=== PATIENT | female | born 1935 | race Caucasian/White ===

== ENCOUNTER 2017-09-17 18:45 | Emergency (ER) | payer OTHER ==
[~2017-09-17] VITALS: Ht 170.2 cm; Wt 56.7 kg
[~2017-09-17 18:45] MED LIST: CEPHALEXIN 500500 M1 PO; CHOLESTEROL; COREG6.25 MG PO; LIPITOR 10 MG10 M1 PO; MULTI VITAMIN1 EACH PO; NORCO 5-325 TA1 EACH PO
[2017-09-17 20:43] VITALS: BP 139/56
== END 2017-09-17 20:44 | disposition home or self-care (01) ==
LOC: M.ERS 18:45
DX: M25.511 Pain in right shoulder (principal); I10 Essential (primary) hypertension; G30.9 Alzheimer's disease, unspecified; Z88.1 Allergy status to other antibiotic agents; Z88.5 Allergy status to narcotic agent; V89.2XXA Person injured in unspecified motor-vehicle accident, traffic, initial encounter; Y93.89 Activity, other specified; Y92.89 Other specified places as the place of occurrence of the external cause; Y99.8 Other external cause status

== ENCOUNTER → 2018-03-20 | Outpatient (CLI) | payer OTHER | LOC: M.RAD 14:48 | DX: M16.0 Bilateral primary osteoarthritis of hip (principal) ==

== ENCOUNTER 2018-03-31 10:20 | Emergency (ER) | payer OTHER ==
[~2018-03-31] VITALS: Ht 162.6 cm; Wt 90.7 kg
[2018-03-31] MEDS ORDERED: PREDNISONE 20 M20 M1 PO (12:48)
[2018-03-31] MEDS ORDERED: TORADOL 10 MG T10 MG PO (12:48)
[2018-03-31 13:11] VITALS: BP 138/56
== END 2018-03-31 13:12 | disposition home or self-care (01) ==
LOC: M.ERS 10:20
DX: M54.32 Sciatica, left side (principal); I10 Essential (primary) hypertension; G30.9 Alzheimer's disease, unspecified; F02.80 Dementia in other diseases classified elsewhere, unspecified severity, without behavioral disturbance, psychotic disturbance, mood disturbance, and anxiety; Z88.5 Allergy status to narcotic agent; Z88.1 Allergy status to other antibiotic agents

== ENCOUNTER 2018-10-12 18:40 | Emergency (ER) | payer OTHER ==
[~2018-10-12] VITALS: Ht 172.7 cm; Wt 55.9 kg
[~2018-10-12 18:40] MED LIST changes: +PREDNISONE 20 M20 M1 PO; +TORADOL 10 MG T10 MG PO
[2018-10-12 19:45] LABS: ABSOLUTE EOSINOPHILS 0.1 thou/uL (0.0-0.7); ABSOLUTE LYMPHOCYTES 1.9 thou/uL (0.8-5.3); ABSOLUTE MONOCYTES 0.4 thou/uL (0.0-1.2); ABSOLUTE NEUTROPHILS 3.4 thou/uL (1.6-8.1); BASOPHILS 0.7 %; HEMATOCRIT 37.1 % (37.0-47.0); HEMOGLOBIN 12.4 gm/dL (12.0-15.0); LYMPHOCYTES 32.4 %; MCH 30.2 pg (26.0-34.0); MCHC 33.5 g/dL (28.0-37.0); MCV 90.2 fL (80.0-100.0); MONOCYTES 7.6 %; MPV 6.9 fl. (7.2-11.1); NUCLEATED RBCS 0 /100WBC; PLATELET COUNT* 163 thou/uL (150-400); POLYS 57.3 %; RBC 4.11 mil/uL (4.20-5.00); WBC 5.9 thou/uL (4.0-11.0)
[2018-10-12 20:00] LABS: CALCIUM 8.9 mg/dL (8.5-10.1); POTASSIUM 3.9 mmol/L (3.5-5.1)
[2018-10-12 20:05] LABS: ALBUMIN 3.5 g/dL (3.4-5.0); SALICYLATE < 2.8 mg/dL (2.8-20.0); TOTAL BILIRUBIN 0.3 mg/dL (<0.1-1.0); TOTAL PROTEIN 6.9 g/dL (6.4-8.2)
[2018-10-12 20:06] LABS: ACETAMINOPHEN < 2 ug/mL (10-30); ALCOHOL < 10 mg/dL (<10)
[2018-10-12 20:44] LABS: URINE BILIRUBIN NEGATIVE (Negative); URINE BLOOD NEGATIVE (Negative); URINE CLARITY CLEAR; URINE COLOR YELLOW; URINE GLUCOSE-RANDOM NEGATIVE (Negative); URINE KETONES NEGATIVE (Negative); URINE LEUKOCYTES-REFLEX NEGATIVE (Negative); URINE NITRITE-REFLEX NEGATIVE (Negative); URINE PROTEIN NEGATIVE (Negative); URINE UROBILINOGEN 0.2 E.U./dl (0.2-1.0)
[2018-10-12 20:51] LABS: AMP/METHAMP Negative (Negative); BARBITURATES Negative (Negative); BENZODIAZEPINES Negative (Negative); COCAINE Negative (Negative); METHADONE Negative (Negative); OPIATES Negative (Negative); PCP Negative (Negative); THC Negative (Negative)
[2018-10-12 22:40] VITALS: BP 165/69
== END 2018-10-12 22:40 | disposition still patient (30) ==
LOC: M.ERS 18:40
PROVIDERS: Nurse Practitioner Family
DX: S60.811A Abrasion of right wrist, initial encounter (principal); G30.9 Alzheimer's disease, unspecified; F02.81 Dementia in other diseases classified elsewhere, unspecified severity, with behavioral disturbance; F91.9 Conduct disorder, unspecified; Z88.5 Allergy status to narcotic agent; I10 Essential (primary) hypertension; Z98.890 Other specified postprocedural states; Z88.1 Allergy status to other antibiotic agents; X78.1XXA Intentional self-harm by knife, initial encounter; Y93.89 Activity, other specified; Y92.009 Unspecified place in unspecified non-institutional (private) residence as the place of occurrence of the external cause; Y99.8 Other external cause status

== ENCOUNTER → 2018-11-13 | Outpatient (CLI) | payer OTHER | LOC: M.ULTRA 15:05 | DX: R22.1 Localized swelling, mass and lump, neck (principal) ==

== ENCOUNTER 2019-05-01 07:43 | Inpatient (IN) | payer MEDICARE ==
[~2019-05-01] VITALS: Ht 162.6 cm; Wt 53.1 kg
[2019-05-01 07:51] VITALS: BP 154/65
[2019-05-01] MEDS ORDERED: FOLBIC RF TABL1 EACH PO (07:57)
[2019-05-01] MEDS ORDERED: VITAMIN D21250 MC1 PO (07:58)
[2019-05-01 08:59] LABS: ABSOLUTE LYMPHOCYTES 0.9 thou/uL (0.8-5.3); ABSOLUTE MONOCYTES 0.7 thou/uL (0.0-1.2); BASOPHILS 0.4 %; HEMATOCRIT 38.8 % (37.0-47.0); HEMOGLOBIN 13.2 gm/dL (12.0-15.0); LYMPHOCYTES 15.6 %; MCH 30.8 pg (26.0-34.0); MCHC 33.9 g/dL (28.0-37.0); MCV 90.7 fL (80.0-100.0); MONOCYTES 12.7 %; MPV 6.7 fl. (7.2-11.1); NUCLEATED RBCS 0 /100WBC; PLATELET COUNT* 127 thou/uL (150-400); POLYS 71.3 %; RBC 4.29 mil/uL (4.20-5.00); RDW-CV 13.9 % (10.5-14.5); WBC 5.6 thou/uL (4.0-11.0)
[2019-05-01 09:11] LABS: PROTIME 10.7 Seconds (9.20-11.50)
[2019-05-01 09:17] LABS: CALCIUM 8.7 mg/dL (8.5-10.1); CREATININE 1.1 mg/dL (0.6-1.3); POTASSIUM 3.6 mmol/L (3.5-5.1)
--- NOTE | 2019-05-01 09:17 | NUR ---
PT BACK FROM RADIOLOGY VIA STRETCHER. PT REATTACHED TO MONITORS.
[2019-05-01 09:27] LABS: ALBUMIN 3.2 g/dL (3.4-5.0); TOTAL BILIRUBIN 0.6 mg/dL (<0.1-1.0); TOTAL PROTEIN 6.6 g/dL (6.4-8.2)
[2019-05-01 09:46] LABS: INFLUENZA A ANTIGEN Negative (Negative); INFLUENZA B ANTIGEN Negative (Negative)
[2019-05-01 09:46] LABS: URINE BILIRUBIN NEGATIVE (Negative); URINE BLOOD TRACE (Negative); URINE CLARITY CLEAR; URINE COLOR YELLOW; URINE GLUCOSE-RANDOM NEGATIVE (Negative); URINE KETONES NEGATIVE (Negative); URINE LEUKOCYTES-REFLEX NEGATIVE (Negative); URINE NITRITE-REFLEX NEGATIVE (Negative); URINE PROTEIN NEGATIVE (Negative); URINE SPECIFIC GRAVITY 1.025 (1.005-1.030); URINE UROBILINOGEN 0.2 E.U./dl (0.2-1.0)
--- NOTE | 2019-05-01 12:49 | EKG ---
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: [facility] : 1935 Requested By: Adan Barcenas Order Number: [id number] MD: David Govea Measurements Intervals [place] Rate: 80 P: 46 SC: 150 QRS: 16 QRSD: 83 T: 69 QT: 405 QTc: 468 Interpretive Statements Sinus rhythm Atrial premature complexes poor r wave progression Compared to ECG 09/28/2015 08:06:14 Atrial premature complex(es) now present Electronically Signed On 05-01-2019 12:47:51 CDT by David Govea [email or web address] <ELECTRONICALLY SIGNED> By: David Govea MD, [facility] 05/01/19 1247 0803 0803 David Govea MD, [facility] /EPI
--- NOTE | 2019-05-01 14:16 | NUR ---
PT PULLING AT CATHETER. TOOK STAT LOCK OFF LEG. PT REDIRECTED BY STAFF. REPOSITIONED IN BED AND GIVEN WARM BLANKETS. PT CURRENTLY IN BED, EYES CLOSED, RESPIRATIONS EVEN AND UNLABORED.
--- NOTE | 2019-05-01 15:00 | NUR ---
PT CONTINUES TO PULL AT CORDS. PT REPOSITIONED AND REDIRECTED AGAIN. PT LEGS HANGING OFF BED, BETWEEN SIDERAILS. LEGS PLACED BACK IN BED. PILLOW PLACED UNDER RIGHT HIP.
--- NOTE | 2019-05-01 15:25 | NUR ---
CATHETER OUTPUT 1,150 ML
--- NOTE | 2019-05-01 15:36 | NUR ---
PT LEGS IN BETWEEN SIDERAILS OF BED, PT GRABBING AT CORDS AND CATHETER. PT HAS KICKED OFF BLANKETS AND LIFTED UP GOWN EXPOSING VAGINA. THIS NURSE AND REANNA RN IN ROOM GETTING PT SITUATED IN BED. PILLOW PLACED UNDER PT RIGHT SIDE. ALL CORDS REMOVED FROM PT REACH. PT GRABBED FOR CATHETER, NURSE GAVE PT BP CUFF TO KEEP PT FROM GRABBING AT CATHETER TUBING. WARM BLANKETS GIVEN TO PT.
[2019-05-01 16:05] VITALS: BP 146/85
--- NOTE | 2019-05-01 16:05 | NUR ---
REPORT GIVEN TO LOGAN REED WHO IS TO ASSUME PT CARE INPATIENT NURSE.
[2019-05-01 16:30] VITALS: BP 124/80
--- NOTE | 2019-05-01 17:45 | NUR ---
1630 PATIENT ARRIVED TO FLOOR VIA GURNEY FROM ER, REPORT REC'D FROM [facility]. PATIENT PLACED IN COVID ISOLATION, AND ASSESSMENT PERFORMED. PATIENT RESTLESS BUT EYES CLOSED AND EASILY REDIRECTED. CEDILLO CATHETER PATENT AND DRAINING CLEAR PALE YELLOW URINE. NO RESP DISTRESS OR COUGH NOTED AT THIS TIME.
[2019-05-01 19:45] VITALS: BP 123/58
[2019-05-02 01:21] VITALS: BP 155/72
--- NOTE | 2019-05-02 05:16 | NUR ---
PT HAS REMAINED SLEEPING WITHOUT COMPLAINTS THIS SHIFT. O2 2L PRN TO KEEP SATS >90%. CEDILLO DRAINING CLEAR YELLOW URINE. TEMP MAX 99.4AXILLARY. NO LABS THIS MORNING. REMAIN ON COVID ISOLATION. PT WITH SNORING RESPIRATIONS, OCC CONGESTED COUGH HEARD. SCDS. PT TURNED AND REPOSITIONED Q2 HOURS AND PRN FOR SKIN INTEGRITY AND COMFORT. LAC SL. HX DEMENTIA. PENDING COVID LAB RESULTS. BED ALARM ON FOR SAFETY.
[2019-05-02 08:30] VITALS: BP 158/77
--- NOTE | 2019-05-02 09:48 | NUR ---
Pt lives at home with spouse. Pt has history of dementia according to pt . Pt has extended family support; nephew listed as authorized contact. No known DME or HH or SNF history. SW to continue to follow to assist with safe dc planning.
--- NOTE | 2019-05-02 16:03 | NUR ---
FAXED REFERRAL TO [facility]. CONFIRMED WITH ROXIE/INTAKE THAT THEY RECEIVED AND SHE WILL REVIEW AND GET BACK WITH ME TOMORROW, 05/03/19. SPOKE TO RASHAWN MURRY (SPOUSE) [phone] AND NOTIFIED HIM THAT WE SENT THE REFERRAL TO [facility]. [facility] [phone]; [phone]
--- NOTE | 2019-05-02 17:14 | NUR ---
PT AWKE/ALERT ORIENTED TO PERSON. VSS. PT OCCASSIONALLY CALLS OUT, BUT MAKES NO ATTEMPT TO LEAVE THE BED. BED ALARM ON, FALL PRECAUTIONS IN PLACE. CEDILLO CATHETER IN PLACE, PATENT, YELLOW URINE IN COLLECTION BAG. PT REMAINS CONFUSED, BUT BASELINE. PT SPOUSE CONTACTED CASE MANAGEMENT R/T LTC UPON DC FROM HOSPITAL. SPOUSE UPDATED BY PHONE. IV TO LFA PATENT, SECURED WITH COBAN. NO REDNESS/SWELLING AT SITE. PT REMIANS ON ISOLATION PRECAUTIONS LAB RESULTS PENDING. PT RESTS IN BED WITH CALL LIGHT IN REACH. WILL COPNTINUE TO MONITOR.
[2019-05-02 20:00] VITALS: BP 162/75
--- NOTE | 2019-05-03 05:43 | NUR ---
PT ORIENTED TO SELF. CONFUSED. FORGETFUL. VISUAL HALLUCINATION. VSS ON RA. 2L @ HS C/O DESATT WHILE SLEEPING PER REPORT. ISOLATION PRECAUTION IN PLACE. MEDS GIVEN PER EMAR. PT TAKES MED WHOLE. CEDILLO IN PLACE. HOURLY ROUNDINGS MADE. PT SLEPT WELL THIS SHIFT. WILL CONTINUE TO MONITOR.
[2019-05-03 08:30] VITALS: BP 150/70
[2019-05-03 14:33] LABS: HEMATOCRIT 42.5 % (37.0-47.0); HEMOGLOBIN 14.6 gm/dL (12.0-15.0); MCHC 34.4 g/dL (28.0-37.0); MCV 90.1 fL (80.0-100.0); MPV 7.4 fl. (7.2-11.1); NUCLEATED RBCS 0 /100WBC; PLATELET COUNT* 152 thou/uL (150-400); RBC 4.72 mil/uL (4.20-5.00); RDW-CV 13.7 % (10.5-14.5); WBC 11.8 thou/uL (4.0-11.0)
--- NOTE | 2019-05-03 14:48 | NUR ---
SW received call from pt who wanted update on pt status. Pt said he was concerned with pt toenails and wondered if it could be a source of infection. DC neighborhood planner informed SW that [facility] said that they would not be able to meet pt needs/accept at dc. SW to inform pt and discuss alternate options or possibility of pt to dc home with home health.
[2019-05-03 14:49] LABS: ALBUMIN 2.9 g/dL (3.4-5.0); CALCIUM 8.9 mg/dL (8.5-10.1); CREATININE 1.1 mg/dL (0.6-1.3); POTASSIUM 3.9 mmol/L (3.5-5.1); TOTAL BILIRUBIN 0.9 mg/dL (<0.1-1.0); TOTAL PROTEIN 7.2 g/dL (6.4-8.2)
[2019-05-03 15:39] LABS: ABSOLUTE LYMPHOCYTES 0.8 thou/uL (0.8-5.3); ABSOLUTE MONOCYTES 0.5 thou/uL (0.0-1.2); ABSOLUTE NEUTROPHILS 10.5 thou/uL (1.6-8.1)
[2019-05-03 15:40] LABS: PLATELET ESTIMATE ADEQUATE
--- NOTE | 2019-05-03 18:34 | NUR ---
PT AWAKE MOST OF THIS SHIFT. VSS. PT ORIENTED TO SELF. CEDILLO CATHETER PATENT, DK YELLOW URINE IN BAG. IV TO LFA DC'D THIS AFTERNOON, NEW ACCESS PLACED DISTAL LFA. PT SPOUSE SPOKE WITH CASE MGMNT R/T TO PLACEMENT UPON DC FROM UNIT. PT ON 2L O2 NC AT NOC. PT AFEBRILE THIS AM, BUT FOUND TO BE WARM TO THE TOUCH THIS AFTERNOON DURING BED CHANGE AND REPOSITIONING. APPROX 1700 PT TEMP 101.9 AX, REPORTED TO DR YO. 650 MG TYLENOL, AZITHROMYCIN AND UA ORDERED PER DR YO. PT REMAINS ON ISOLATION AWAITING LAB RESULTS. POP FLUIDS ENCOURAGED AND PT DRANK WATER WITHOUT DIFFICULTY. WILL CONTINUE TO ENCOURAGE FLUID INTAKE. PT CURRENTLY RESTING IN BED WITH CALL LIGHT IN REACH. WILL CONTINUE TO MONITOR.
[2019-05-03 20:00] VITALS: BP 118/58
--- NOTE | 2019-05-04 05:58 | NUR ---
PT SLEPT WELL THIS SHIFT. ORIENTED TO PERSON. CONFUSED. FORGETFUL. VISUAL HALLUCINATIONS. PT TOOK MEDS WHOLE. TEMP ON REASSESSMENT AFTER TYLENOL PRIOR SHIFT WAS DOWN TO 97.4. PT DID NOT RUN TEMP THIS SHIFT.Q2 TURN, ISOLATION PRECAUTION IN PLACE. WILL CONTINUE TO MONITOR.
[2019-05-04 08:40] VITALS: BP 110/60
--- NOTE | 2019-05-04 16:08 | NUR ---
FAXED REFERRAL TO SHAWNEE/SARA FOR [facility] AND OTHER [facility] NURSING FACILITIES IN THE [facility]. INFORMED HER THAT PATIENT WOULD INITIALLY BE SKILLED BUT POSSIBLE FUTURE PLACEMENT IN MEMORY CARE LTC. [facility] HAS A NEW ALL-FEMALE MEMORY CARE UNIT THAT I WILL DISCUSS WITH HER . CONCERNED OF THE DISTANCE SO PERSUED ANDERSON BUT THEY HAD NO BEDS AVAILABLE, [facility] COULD NOT ACCEPT WITH CURRENT DEMENTIA DX. [facility] AND [facility] HAVE NOT YET RESPONDED. SHAWNEE/SARA [facility] [phone]; [phone]
--- NOTE | 2019-05-04 16:34 | NUR ---
SPOKE TO RASHAWN MURRY (SPOUSE) REGARDING THE [facility] THAT MAY HAVE AVAILABLE BEDS. HE WAS VERY RECEPTIVE TO THE FACILITY IN [place] BUT WANTED ME TO CHECK [facility] AGAIN. I CALLED AND SPOKE TO ROXIE/LIAISON AT [facility] AND WILL FAX HER UPDATED PROGRESS AND THERAPY NOTES ON 05/07/19. WILL UPDATE SPOUSE ON TUESDAY.
--- NOTE | 2019-05-04 19:12 | NUR ---
PT AWAKE/ALERT ORIENTED TO PERSON. VSS. PT BEGAN SHIFT ON COVID PRECAUTIONS. NEGATIVE RESUKLT REPORTED THIS AFTERNOON, BUT PT REMAINS ON DROPLET D/T PENDING VIRAL PANEL. IV TO LFA PATENT, SALINE LOCKED. PT ENCOURAGED TO DRINK FLUIDS, PT LIKED CRANBERRY JUICE. CEDILLO CATHETER PATENT, YELLOW URINE VISIBLKE IN COLLECTION BAG. PT SPOUSE UPDATED BY PHONE. CASE MANAGEMENT WORKING ON SNF PLACEMENT UPON DC. PT RESTS IN BED WITH CALL IGHT IN REACH. FALL PRECAUTIONS IN PLACE. WILL CONTINUE TO MONITOR.
[2019-05-04 20:30] VITALS: BP 163/68
--- NOTE | 2019-05-05 06:19 | NUR ---
PATIENT SLEPT MOST OF THE NIGHT. PATIENT REMAINS ON DROPLET PRECAUTIONS FOR PENDING RESPIRATORY PANEL. PATIENT REMAINS ON RA SATTING 93%. CEDILLO REMAINS TO DEPENDENT DRAIN. WILL CONTINUE TO MONITOR.
[2019-05-05 07:45] VITALS: BP 101/46
[2019-05-05 09:24] LABS: URINE BILIRUBIN NEGATIVE (Negative); URINE BLOOD 1+ (Negative); URINE CLARITY CLEAR; URINE COLOR YELLOW; URINE GLUCOSE-RANDOM NEGATIVE (Negative); URINE KETONES NEGATIVE (Negative); URINE LEUKOCYTES NEGATIVE (Negative); URINE NITRITE NEGATIVE (Negative); URINE PROTEIN TRACE (Negative); URINE SPECIFIC GRAVITY 1.025 (1.005-1.030); URINE UROBILINOGEN 0.2 E.U./dl (0.2-1.0)
[2019-05-05 09:37] LABS: BACTERIA 1-9 Few /HPF (None Seen); CRYSTALS None Seen /LPF (None Seen); HYALINE CASTS 4-10 Moderate /LPF (None Seen); MUCUS 0-3 Light strn/LPF (None Seen); SQUAMOUS 0-3 Few /LPF (0-3); URINE RBC 3-10 Few /HPF (0-2); URINE WBC 0-5 Rare /HPF (0-5)
[2019-05-05 16:24] VITALS: BP 117/53
--- NOTE | 2019-05-05 18:03 | NUR ---
PATIENT RESTING IN BED. PATIENT IS PLEASANTLY CONFUSED. PATIENT REFUSED BREAKFAST BUT HAS EATEN WELL FOR LUNCH AND DINNER WITH SET-UP. PATIENT DENIES ANY PAIN. PATIENT REPOSITIONED IN BED CHARTED. PATIENT HAS BEEN AFEBRILE. PATIENT HAS NON-PRODUCTIVE COUGH. PATIENT IS ON ROOM AIR. PATIENT DENIES ANY NEEDS AT THIS TIME. BED ALARM ON. CALL LIGHT WITHIN REACH.
[2019-05-06 04:37] LABS: HEMATOCRIT 37.7 % (37.0-47.0); HEMOGLOBIN 12.9 gm/dL (12.0-15.0); MCH 30.7 pg (26.0-34.0); MCHC 34.2 g/dL (28.0-37.0); MCV 89.7 fL (80.0-100.0); MPV 7.6 fl. (7.2-11.1); RBC 4.2 mil/uL (4.20-5.00); RDW-CV 13.6 % (10.5-14.5); WBC 6.6 thou/uL (4.0-11.0)
[2019-05-06 05:06] LABS: ALBUMIN 2.1 g/dL (3.4-5.0); CALCIUM 8.3 mg/dL (8.5-10.1); CREATININE 0.9 mg/dL (0.6-1.3); POTASSIUM 3.8 mmol/L (3.5-5.1); TOTAL BILIRUBIN 0.4 mg/dL (<0.1-1.0); TOTAL PROTEIN 6.1 g/dL (6.4-8.2)
[2019-05-06 08:00] VITALS: BP 143/52
--- NOTE | 2019-05-06 08:38 | NUR ---
PATIENT HAS SLEPT WELL THROUGHOUT THE NIGHT. VSS ON RA. PAIENT REMAINS ON DROPLET PRECAUTIONS. PATIENT IS ALERT TO SELF BUT VERY CONFUSED. PATIENT HAS HISTORY OF [facility]. IV IN [facility]. FALL PRECAUTIONS IN PLACE AND HOURLY ROUNDS MADE. WILL CONTINUE WITH PLAN OF CARE AND NURSING TO MONITOR.
[2019-05-06 15:00] VITALS: BP 144/58
--- NOTE | 2019-05-06 17:13 | NUR ---
PATIENT RESTING IN BED. PATIENT IS CONFUSED. PATIENT HAS TRIED TO GET OUT OF BED, BED ALARM IS ON. PATIENT IS ON ROOM AIR. CEDILLO IS PLACE WITH DARK YELLOW URINE. PATIENT ASSISTED WITH MEALS, HAS FAIR APPETITE. PATIENT DENIES ANY NEEDS AT THIS TIME. CALL LIGHT WITHIN REACH.
[2019-05-06 22:30] VITALS: BP 122/62
[2019-05-07 03:44] LABS: HEMATOCRIT 33.9 % (37.0-47.0); HEMOGLOBIN 11.8 gm/dL (12.0-15.0); MCH 30.9 pg (26.0-34.0); MCHC 34.9 g/dL (28.0-37.0); MCV 88.6 fL (80.0-100.0); MPV 7.4 fl. (7.2-11.1); RBC 3.83 mil/uL (4.20-5.00); RDW-CV 13.6 % (10.5-14.5); WBC 6.3 thou/uL (4.0-11.0)
[2019-05-07 03:57] LABS: CALCIUM 8.2 mg/dL (8.5-10.1); MAGNESIUM 1.8 mg/dL (1.8-2.4); POTASSIUM 3.8 mmol/L (3.5-5.1)
--- NOTE | 2019-05-07 06:09 | NUR ---
PATIENT HAS SLEPT WELL THROUGHOUT THE NIGHT. VSS ON RA. MEDICATIONS GIVEN ORDERED AND CHARTED. ASSESSMENT CHARTED. CEDILLO TO DEPENDENT DRAINAGE WITH DARK YELLOW URINE OUTPUT. IV IN LEFT FOREARM-SL. FALL PRECAUTIONS IN PLACE AND HOURLY ROUNDS MADE. WILL CONTINUE WITH PLAN OF CARE AND NURSING TO MONITOR.
[2019-05-07 07:50] VITALS: BP 137/63
--- NOTE | 2019-05-07 10:14 | NUR ---
FAXED UPDATED PROGRESS NOTES AND CLINICALS TO ROXIE/LIAISON AT [facility]. THEY WANTED TO REASSESS THE PATIENT AFTER THE WEEKEND. FAXED UPDATED PROGRESS NOTES AND CLINICALS TO SHAWNEE/LIAISON AT [facility]. [facility] DOES NOT TAKE [employer] INSURANCE BUT OTHER [facility] WILL ACCEPT INSURANCE. [facility]: [phone]; [phone] [facility]EE [facility]: [phone]; [phone]
--- NOTE | 2019-05-07 14:38 | NUR ---
SW received call from pt , Rai, who asked about updates of pt dc plan. SW informed that although [facility] reviewed updates for pt, they still are not able to accept pt due to not being able to meet pt needs. SW informed that CM and dc demand planner working to find placement and will inform pt as soon as there are any updates on placement. SW discussed whether or not home is an option and again, pt refused home as an option stating that he was unable to care for pt at home. SW to continue to follow.
[2019-05-07 16:10] VITALS: BP 134/48
--- NOTE | 2019-05-07 16:10 | NUR ---
CONFIRMED WITH SHAWNEE/INTAKE AT [facility] THAT THEY WOULD HAVE A BED AVAILABLE AND ARE SUBMITTING FOR INSURANCE AUTHORIZATION. WE DISCUSSED PATIENT NEEDING NURSING HOME CARE THEN POSSIBLY TRANSITIONING TO [facility]OC[facility]ATE CARE/MEMORY CARE. CALLED AND UPDATED RASHAWN (SPOUSE) REGARDING [facility] AND THAT [facility] WAS NOT IN NETWORK WITH PATIENT'S INSURANCE. DISCUSSED THAT PLACEMENT MAY BE EARLY TOMORROW, 05/08/19, AND THAT CASE MANAGEMENT WOULD KEEP HIM INFORMED.
--- NOTE | 2019-05-07 18:49 | NUR ---
PATIENT UP TO CHAIR THIS EVEING WITH THERAPY. PATIENT SET UP FOR MEALS. IV REMAINS SL. NO COMPLAINTS OF PAIN. WOUND PHOTO TAKEN OF COCCYX AND WOUND CONS PLACED. PATIENT CEDILLO DC'D AT 1035, PATIENT DID VOID THIS AFTERNOON. REMAINS IN ISOLATION FOR PENDING RVP.
[2019-05-07 21:20] VITALS: BP 134/83
[2019-05-08 06:07] LABS: ADENOVIRUS Negative (Negative); INFLUENZA A Negative (Negative); INFLUENZA B Negative (Negative); METAPNEUMOVIRUS Negative (Negative); PARAINFLUENZA 1 Negative (Negative); PARAINFLUENZA 2 Negative (Negative); PARAINFLUENZA 3 Negative (Negative); RHINOVIRUS Negative (Negative); RSV A Positive (Negative); RSV B Negative (Negative)
--- NOTE | 2019-05-08 06:22 | NUR ---
PATIENT HAS SLEPT WELL THROUGHOUT THE NIGHT. VSS ON RA. PATIENT TURNED EVERY 2HRS. PATIENT REMAINS IN DROPLET PRECAUTIONS. MEDICATIONS GIVEN ORDERED AND CHARTED. IV IN LEFT FOREARM-SL. MEDICATIONS GIVEN ORDERED AND CHARTED. FALL PRECAUTIONS IN PLACE AND HOURLY ROUNDS MADE. WILL CONTINUE WITH PLAN OF CARE AND NURSING TO MONITOR.
[2019-05-08 07:50] VITALS: BP 141/51
[2019-05-08] MEDS ORDERED: LEVAQUIN 750 M750 MG PO (10:21)
[2019-05-08] MEDS ORDERED: SEROQUEL 50 MG50 MG PO (10:21)
[2019-05-08 10:50] VITALS: BP 145/75
[2019-05-08 11:20] VITALS: BP 145/75
--- NOTE | 2019-05-08 13:55 | NUR ---
WOUND NURSE: PATIENT SEEN TO ADDRESS SKIN LESION ON THE SACROCOCCYGEAL AREA. PRESENTS WITH A 6 X 6 UPSIDE DOWN TRIANGULAR SHAPED AREA. THERE IS A SMALL DENUDED AREA ON THE RIGHT SACRUM AND OTHER AREAS OF PURPLE NONBLANCHEABLE INTACT TISSUE. CLEANSED WITH SOAP AND WATER, RINSED WITH WATER, THEN PATTED DRY. APPLIED SKIN PREP TO PERIWOUND TISSUE AND LET DRY. APPLIED AQUACEL AG TO THE OPEN AREA, THEN COVERED WITH EXUDERM LP HYDROCOLLOID DRESSING. SECURED DRESSING IN PLACE USING SURESITE TRANSPARENT DRESSING. PATIENT WAS INCONTINENT OF STOOL AND THIS WAS CLEANSED WITH PERIWIPES, THEN REPLACED CHUX AND REPOSITIONED PATIENT ON HER RIGHT SIDE. PATIENT WAS INSTRUCTED ON FREQUENT REPOSITIONING FROM SIDE TO SIDE EVERY 2 HOURS. PATIENT STATES SHE UNDERSTANDS.
--- NOTE | 2019-05-08 15:15 | NUR ---
FAXED OCCUPATIONAL NOTES TO [facility]NEE[facility]LIAISON [facility]. [phone]; [phone]
[2019-05-08 16:30] VITALS: BP 136/82
--- NOTE | 2019-05-08 16:55 | NUR ---
PATIENT UP TO CHAIR THIS AM. UP WITH ASSISTANCE OF 2, GAIT BELT AND WALKER. PATIENT VOIDED AND HAD A LARGE BM PER BSC. PATIENT IN CHAIR WITH ALARM AND WAFFLE CUSHION IN PLACE. PATIENT WAS ROUNDED AT 1030 AND ATTEMPTED TO GET OUT OF CHAIR, PER TECH WAS INSTRUCTED NOT TO GET UP BY HERSELF. CHAIR ALARM WAS STILL ON AND IN PLACE. AT 1050 PATIENT ROUNDED ON AND PATIENT NOTED TO BE SITTING ON FLOOR. VITALS OBTAINED AND DR. CASE NOTIFIED. NO INJURIES NOTED. DR. CASE NOTIFIED, NO NEW ORDERS RECEIVED. PATIENT TURNED Q2. WOUND CARE SAW PATIENT AND PLACED DRESSING TO COCCXY FOR PREVIOUS DEEP TISSUE INJURY. PATIENT REMAINS IN DROPLET FOR RSV POSITIVE RESULT. AWAITING INSURANCE AUTH FOR PLACEMENT.
[2019-05-08 20:40] VITALS: BP 122/77
--- NOTE | 2019-05-09 05:45 | NUR ---
PATIENT SLEPT WELL DURING THIS SHIFT. PT TURNED Q2H PER PROTOCAL. PT TAKES PILLS WITH WATER. PT WITH SALINE LOCK IN LT FOREARM. PT INCONTINENT OF URINE. PT UP WITH ASSIST OF TWO. FREQUENTLY USED ITEMS AND CALL LIGHT WITHIN REACH. SIDERAILS UPX3 AND BED ALARM ON. PT REMAINS IN DROPLET ISOLATION. WILL CONTINUE TO MONITOR.
[2019-05-09 11:44] VITALS: BP 125/53
--- NOTE | 2019-05-09 13:02 | NUR ---
Nutrition: Pt admitted with RSV. Wt: 117#. Eating 50% of regular diet. Assessed for pressure ulcer on coccyx. Labs: alb 2.1, prealb 11.9. To SNF at disch. Increased nutrient needs R/T wound healing AEB ulcer on coccyx and labs above. RD will order Parveen for added protein intake. Mild risk. Likely disch soon.
[2019-05-09 15:54] VITALS: BP 125/53
[2019-05-09 16:00] VITALS: BP 131/46
--- NOTE | 2019-05-09 16:39 | NUR ---
CONFIRMED WITH SHAWNEE/LIAISON THAT FACILITY HAS ARRANGED TRANSPORTATION BY [facility] FOR 18:00. CHART COPY REQUESTED. NURSING UNIT NOTIFIED. FAXED DISCHARGE ORDERS, DISCHARGE SUMMARY AND DA-124C TO KASH OF [facility]. [facility] [place] [phone]; [phone]
--- NOTE | 2019-05-09 18:27 | NUR ---
ASSUMED CARE OF THE PT AT 0700. pT ALERT AND CONFUSED. DENIES PAIN. LT FA IV PATENT SL. ASSIST X 2 WITH TRANSFERS. INCONTINENT AT TIMES OF BOWEL AND BLADDER. REPOSITIONED EVERY 2 HOURS FOR COMFORT. APPETITE FAIR. REQUIRES ASSISTANCE TO EAT. ORDERS TO DISCHARGE TO SNF. REPORT CALLED TO [facility] NURSE NATALIE FORD.PT TRANSPORTED TO TRANSPORT VEHICLE VIA W/C. ACCOMPANIED BY STAFF. BEING TRANSPORTED VIA [facility]. PT HAS ALL BELONGINGS AND PAPERWORK. PT STABLE.
== END 2019-05-09 18:00 | DRG 70 ==
LOC: M.ERS 07:43 → M.3W 10:50 → M.TBA-ER 10:50 → M.3W 16:14
PROVIDERS: Emergency Medicine; Internal Medicine; ADMIT Internal Medicine
DX: G93.41 Metabolic encephalopathy (principal); I21.A1 Myocardial infarction type 2; J06.9 Acute upper respiratory infection, unspecified; I10 Essential (primary) hypertension; G30.9 Alzheimer's disease, unspecified; J20.9 Acute bronchitis, unspecified; F02.80 Dementia in other diseases classified elsewhere, unspecified severity, without behavioral disturbance, psychotic disturbance, mood disturbance, and anxiety; Z88.6 Allergy status to analgesic agent; Z88.8 Allergy status to other drugs, medicaments and biological substances; Z79.899 Other long term (current) drug therapy

== ENCOUNTER 2019-05-17 11:00 | Inpatient (IN) | payer MEDICARE ==
[~2019-05-17] VITALS: Ht 172.7 cm; Wt 58.1 kg
[2019-05-17] VITALS (13 sets, daily range): BP systolic 62–179; BP diastolic 29–79
[~2019-05-17 11:00] MED LIST changes: +FOLBIC RF TABL1 EACH PO; +LEVAQUIN 750 M750 MG PO; +SEROQUEL 50 MG50 MG PO; +VITAMIN D21250 MC1 PO
[2019-05-17 11:52] LABS: PCO2 35.1 mmHg (35.0-45.0); pH 7.396 (7.340-7.450)
[2019-05-17 11:53] LABS: BE -3.1 mmol/L (-2 to +3)
[2019-05-17 11:55] LABS: PO2 470.8 mmHg (75.0-100.0)
[2019-05-17 12:35] LABS: URINE BILIRUBIN NEGATIVE (Negative); URINE BLOOD NEGATIVE (Negative); URINE CLARITY CLEAR; URINE COLOR YELLOW; URINE GLUCOSE-RANDOM NEGATIVE (Negative); URINE KETONES NEGATIVE (Negative); URINE LEUKOCYTES-REFLEX NEGATIVE (Negative); URINE NITRITE-REFLEX NEGATIVE (Negative); URINE PROTEIN NEGATIVE (Negative); URINE SPECIFIC GRAVITY 1.025 (1.005-1.030); URINE UROBILINOGEN 0.2 E.U./dl (0.2-1.0)
[2019-05-17 14:13] LABS: HEMATOCRIT 34.9 % (37.0-47.0); HEMOGLOBIN 11.8 gm/dL (12.0-15.0); MCH 30.5 pg (26.0-34.0); MCHC 33.7 g/dL (28.0-37.0); MCV 90.3 fL (80.0-100.0); NUCLEATED RBCS 0 /100WBC; PLATELET COUNT* 102 thou/uL (150-400); RBC 3.86 mil/uL (4.20-5.00); WBC 13.1 thou/uL (4.0-11.0)
[2019-05-17 14:28] LABS: APTT 26.4 Seconds (25.0-31.3); INR 1.2; PROTIME 12.7 Seconds (9.20-11.50)
[2019-05-17 14:42] LABS: ABSOLUTE LYMPHOCYTES 0.9 thou/uL (0.8-5.3); ABSOLUTE NEUTROPHILS 11.1 thou/uL (1.6-8.1); PLATELET ESTIMATE ADEQUATE
[2019-05-17 14:46] LABS: CALCIUM 8.4 mg/dL (8.5-10.1); CREATININE 2.2 mg/dL (0.6-1.3)
[2019-05-17 14:47] LABS: POTASSIUM 5.2 mmol/L (3.5-5.1)
[2019-05-17 14:57] LABS: ALBUMIN 2.3 g/dL (3.4-5.0); TOTAL BILIRUBIN 0.8 mg/dL (<0.1-1.0); TOTAL PROTEIN 6.1 g/dL (6.4-8.2)
--- NOTE | 2019-05-17 17:46 | 2DMMODE ---
[place] [address] 2 D/M-MODE ECHOCARDIOGRAM Name: BENJY MURRY [place] Room: [address] IN [facility]#: [id number] Admission: 05/17/19 Attend Phys: Troy sommers Sa Discharge: Date of : 31 Date of Service: 05/17/19 1745 Report #: [id number] THIS REPORT FOR: cc: FAM - No family physician/PCP FAM - No family physician/PCP Amadeo Goode MD [facility] ~ APPROVED REPORT Study performed: 05/17/2019 16:05:25 EXAM: Comprehensive 2D, Doppler, and color-flow Echocardiogram Patient Location: In-Patient Room #: 006 Status: routine BSA: 1.60 HR: 77 bpm BP: 97/41 mmHg Rhythm: NSR Other Information Study Quality: Good Indications Dyspnea 2D Dimensions IVSd: 12.28 (7-11mm) LVOT Diam: 19.10 (18-24mm) LVDd: 27.18 mm PWd: 11.58 (7-11mm) LVDs: 15.17 (25-40mm) Aortic Root: 26.80 mm Volumes Left Atrial Volume (Systole) LA ESV Index: 17.80 mL/m2 Aortic Valve AoV Peak Kirill.: 1.22 m/s AO Peak Gr.: 5.98 mmHg LVOT Max P.72 mmHg AO Mean Gr.: 3.36 mmHg LVOT Mean P.37 mmHg LVOT Max V: 0.83 m/s AO V2 VTI: 20.22 cm LVOT Mean V: 0.54 m/s COSME (VTI): 2.17 cm2 LVOT V1 VTI: 15.32 [place] [address] 2 D/M-MODE ECHOCARDIOGRAM Name: BENJY MURRY Room: [address] IN .R.#: [id number] Admission: 05/17/19 Attend Phys: Troy sommers Sa Discharge: Date of : 31 Date of Service: 05/17/19 1745 Report #: [id number] Mitral Valve E/A Ratio: 0.64 MV Decel. Time: 430.79 ms MV E Max Kirill.: 0.46 m/s MV PHT: 124.93 ms MVA (PHT): 1.76 cm2 TDI E/Lateral E': 9.20 E/Medial E': 11.50 Medial E' Kirill.: 0.04 m/s Lateral E' Kirill.: 0.05 m/s Pulmonary Valve PV Peak Kirill.: 0.82 m/s PV Peak Gr.: 2.68 mmHg Tricuspid Valve RAP Estimate: 5.00 mmHg TR Peak Gr.: 28.14 mmHg RVSP: 33.00 mmHg PA Pressure: 33.00 mmHg Left Ventricle The left ventricle is normal size. There is normal LV segmental wall motion. Mild concentric left ventricular hypertrophy. Left ventricular systolic function is vigorous. LVEF is >90%. Grade I - abnormal relaxation pattern. Right Ventricle Right ventricle is dilated. Right ventricular systolic function is moderately reduced. Pacemaker lead is present in the right ventricle. Atria The left atrium size is normal. Right atrium is dilated. Aortic Valve The aortic valve is normal in structure. No aortic regurgitation is present. There is no aortic valvular stenosis. Mitral Valve The mitral valve is normal in structure. There is no mitral valve regurgitation noted. No evidence of mitral valve stenosis. Tricuspid Valve The tricuspid valve is normal in structure. Mild tricuspid regurgitation. The RVSP is 50-55 [place] [address] 2 D/M-MODE ECHOCARDIOGRAM Name: MURRYBENJY Trent Room: [address] IN [facility]#: [id number] Admission: 05/17/19 Attend Phys: Troy sommers Sa Discharge: Date of : 31 Date of Service: 05/17/19 1745 Report #: [id number] The pulmonary valve is normal in structure. Trace pulmonic regurgitation. Great Vessels The aortic root is normal in size. IVC is normal in size and collapses <50% with inspiration. Pericardium There is no pericardial effusion. <Conclusion> The left ventricle is normal size. Mild concentric left ventricular hypertrophy. Left ventricular systolic function is vigorous. LVEF is >90%. Grade I - abnormal relaxation pattern. Right ventricle is dilated. Right ventricular systolic function is moderately reduced. Pacemaker lead is present in the right ventricle. Right atrium is dilated. Mild tricuspid regurgitation. The RVSP is 50-55 mmHg. IVC is normal in size and collapses <50% with inspiration. <ELECTRONICALLY SIGNED> By: Amadeo Goode MD, FACC 05/17/19 1745 1745 1745 Amadeo Goode MD, FACC /INF
[2019-05-17 21:49] LABS: INFLUENZA A ANTIGEN Negative (Negative); INFLUENZA B ANTIGEN Negative (Negative)
[2019-05-18] VITALS (66 sets, daily range): BP systolic 59–170; BP diastolic 20–144
[2019-05-18 04:29] LABS: BE -0.6 mmol/L (-2 to +3); PCO2 32.8 mmHg (35.0-45.0); pH 7.458 (7.340-7.450)
[2019-05-18 04:31] LABS: PO2 174.7 mmHg (75.0-100.0)
[2019-05-18 04:38] LABS: ABSOLUTE EOSINOPHILS 0.1 thou/uL (0.0-0.7); ABSOLUTE LYMPHOCYTES 0.9 thou/uL (0.8-5.3); ABSOLUTE MONOCYTES 0.5 thou/uL (0.0-1.2); ABSOLUTE NEUTROPHILS 14.7 thou/uL (1.6-8.1); BASOPHILS 0.2 %; EOSINOPHILS 0.6 %; HEMATOCRIT 30.6 % (37.0-47.0); HEMOGLOBIN 10.5 gm/dL (12.0-15.0); LYMPHOCYTES 5.6 %; MCH 30.4 pg (26.0-34.0); MCHC 34.2 g/dL (28.0-37.0); MONOCYTES 3.2 %; MPV 8.5 fl. (7.2-11.1); NUCLEATED RBCS 0 /100WBC; PLATELET COUNT* 90 thou/uL (150-400); POLYS 90.4 %; RBC 3.44 mil/uL (4.20-5.00); RDW-CV 13.6 % (10.5-14.5); WBC 16.3 thou/uL (4.0-11.0)
[2019-05-18 04:54] LABS: ALBUMIN 1.8 g/dL (3.4-5.0); CALCIUM 7.5 mg/dL (8.5-10.1); CHOLESTEROL 116 mg/dL (<200); HDL CHOLESTEROL 26 mg/dL (>40); LDL CHOLESTEROL 78 mg/dL (<100); TC:HDL 4.5 Ratio (Not establshd); TOTAL BILIRUBIN 0.7 mg/dL (<0.1-1.0); TOTAL PROTEIN 5.1 g/dL (6.4-8.2); TRIGLYCERIDE 63 mg/dL (<150); VLDL 13 mg/dL (<40)
[2019-05-18 04:55] LABS: POTASSIUM 4.2 mmol/L (3.5-5.1)
[2019-05-18 04:56] LABS: SERUM ASSESSMENT CLEAR
[2019-05-18 05:05] LABS: TROPONIN-I LEVEL 0.62 ng/mL (<0.06)
[2019-05-18 05:07] LABS: PREALBUMIN 12.1 mg/dL (18.0-35.7)
--- NOTE | 2019-05-18 07:50 | CON ---
[address] [address] CONSULTATION Name: BENJY MURRY Room: [address] IN M.R.#: [id number] Admission: 05/17/19 Attend Phys: Troy Roberts Discharge: Date of : 31 Report #: [id number] THIS REPORT FOR: //name// cc: ASH Salguero family physician/PCP ASH Salguero family physician/PCP ~ THIS REPORT FOR: //name// CC: ASH physician/PCP Troy Perez DATE OF SERVICE: 05/17/2019 ATTENDING PHYSICIAN: Troy Perez MD REASON FOR EVALUATION: Respiratory failure, felt to be perhaps a component of pneumonitis with encephalopathy. Recent hospitalization with negative COVID study. HISTORY OF PRESENT ILLNESS: Chart reviewed, patient examined. This is an 84-year-old woman admitted through the Emergency Room in extremis, was emergently intubated due to respiratory failure, found to be nonresponsive at the facility. It is notable that she was hospitalized roughly 2 weeks ago. At that point, it was result of a fall out of bed. Had developed some fever, rhinorrhea. Was diagnosed with pneumonitis and a positive RSV, although negative for COVID. She was discharged on levofloxacin. Currently, she is afebrile. She is intubated. She is not responsive. She has hypotension, we are attempting fluid resuscitation. It is notable that she had 2 large mucus plugs removed with suctioning. She was found to have an elevated troponin level as well. Interestingly, chest x-ray was unremarkable. ABGs done on a 100% showed a pO2 of 470.8. She has been initiated on the COVID protocol and given Levaquin. ALLERGIES: Listed to CEPHALEXIN, CODEINE. CURRENT MEDICATIONS: Include: 1. Zinc sulfate. 2. Carvedilol. 3. Ascorbic acid. 4. Hydroxychloroquine. 5. Azithromycin. 6. Pantoprazole. PAST MEDICAL HISTORY: 1. History of hypertension. 2. [place] [address] CONSULTATION Name: BENJY MURRY Shelby Room: [address] IN [facility].#: [id number] Admission: 05/17/19 Attend Phys: Troy Roberts Discharge: Date of : 31 Report #: [id number] 3. Pneumocephalus due to trauma. 4. Near syncopal episodes. 5. Has known recent history of RSV pneumonitis. SOCIAL HISTORY: Not obtainable. FAMILY HISTORY: Not obtainable. REVIEW OF SYSTEMS: Not obtainable. PHYSICAL EXAMINATION: GENERAL: She appears chronically ill, undernourished. She is really not responsive, although does seemingly move her lower extremities as well as her upper extremities spontaneously. She is supine, maintained on mechanical ventilatory support. VITAL SIGNS: Temperature 97.6, pulse 79, respirations 12, blood pressure 143/47. HEENT: ET tube in place. Pupils are small, equal. NECK: Supple. LUNGS: Scattered coarse breath sounds. HEART: Distant, regular. I do not appreciate a murmur. ABDOMEN: Soft, nontender, nondistended, scaphoid. EXTREMITIES: Right lower extremity has a degree of edema with some mild to moderate inflammation. RECTAL: Deferred. LABORATORY DATA: ABGs: pH 7.396, pCO2 of 35.1 and pO2 of 470.8. FiO2 100%, PEEP of 5. Urinalysis unremarkable. Chest x-ray did not have any acute process. Glucose was 86. CRP elevated at 71.6. Lactic acid 2.1. Troponin elevated at 0.77. CBC: White count of 13.1, H and H 11.8 and 34.9, platelets of 102. Did have a lymphocyte count of 900. Electrolytes: Sodium 144, potassium 5.2 with noted hemolysis. Chloride 108, bicarbonate is 27, anion gap of 9, BUN and creatinine 91 and 2.2, glucose of 132. LFTs unremarkable. ASSESSMENT: respiratory failure. The patient was [place] [address] CONSULTATION Name: BENJY MURRY Room: [address] IN ..#: [id number] Admission: 05/17/19 Attend Phys: Troy Roberts Discharge: Date of : 31 Report #: [id number] not entirely clear. Did have mucus plugging. I do not know if this is more of a mechanical issue. Has been afebrile. Agree with excluding COVID diagnosis at this point. Check additional laboratory. Probably warrants empiric therapy. We will avoid quinolones. Certainly, the neuropsychiatric issues are not insignificant in his age group. We will attempt to collect a sputum sample. Overall prognosis appears quite guarded. <ELECTRONICALLY SIGNED> By: Daniel Lea MD 05/18/19 0750 1448 [id number] Lea MD /nt
[2019-05-19] VITALS (55 sets, daily range): BP systolic 80–180; BP diastolic 36–155
[2019-05-19 02:06] LABS: GLYCOHEMOGLOBIN (HGB A1C) 5.8 % (4.8-5.6)
[2019-05-19 04:03] LABS: ABSOLUTE EOSINOPHILS 0.1 thou/uL (0.0-0.7); ABSOLUTE LYMPHOCYTES 1.1 thou/uL (0.8-5.3); ABSOLUTE MONOCYTES 0.4 thou/uL (0.0-1.2); ABSOLUTE NEUTROPHILS 8.1 thou/uL (1.6-8.1); BASOPHILS 0.3 %; EOSINOPHILS 1.2 %; HEMATOCRIT 29.9 % (37.0-47.0); HEMOGLOBIN 10.2 gm/dL (12.0-15.0); LYMPHOCYTES 11.6 %; MCH 30.4 pg (26.0-34.0); MCHC 34.2 g/dL (28.0-37.0); MONOCYTES 4.2 %; MPV 8.4 fl. (7.2-11.1); NUCLEATED RBCS 0 /100WBC; PLATELET COUNT* 92 thou/uL (150-400); POLYS 82.7 %; RBC 3.36 mil/uL (4.20-5.00); RDW-CV 13.8 % (10.5-14.5); WBC 9.8 thou/uL (4.0-11.0)
[2019-05-19 04:14] LABS: INR 1.3; PROTIME 13.4 Seconds (9.20-11.50)
[2019-05-19 04:26] LABS: ALBUMIN 1.7 g/dL (3.4-5.0); CALCIUM 7.6 mg/dL (8.5-10.1); CREATININE 1.5 mg/dL (0.6-1.3); MAGNESIUM 1.8 mg/dL (1.8-2.4); POTASSIUM 3.6 mmol/L (3.5-5.1); TOTAL BILIRUBIN 0.4 mg/dL (<0.1-1.0); TOTAL PROTEIN 4.9 g/dL (6.4-8.2)
[2019-05-19 06:05] LABS: PCO2 33.8 mmHg (35.0-45.0); pH 7.427 (7.340-7.450)
[2019-05-19 06:07] LABS: PO2 157.5 mmHg (75.0-100.0)
[2019-05-19 14:25] LABS: PO2 114.5 mmHg (75.0-100.0)
[2019-05-20] VITALS (13 sets, daily range): BP systolic 102–164; BP diastolic 52–70
[2019-05-20 06:40] LABS: ABSOLUTE EOSINOPHILS 0.1 thou/uL (0.0-0.7); ABSOLUTE LYMPHOCYTES 1.1 thou/uL (0.8-5.3); ABSOLUTE MONOCYTES 0.4 thou/uL (0.0-1.2); ABSOLUTE NEUTROPHILS 7.2 thou/uL (1.6-8.1); BASOPHILS 0.4 %; EOSINOPHILS 1.3 %; HEMATOCRIT 28.8 % (37.0-47.0); HEMOGLOBIN 9.9 gm/dL (12.0-15.0); LYMPHOCYTES 12.6 %; MCH 30.5 pg (26.0-34.0); MCHC 34.5 g/dL (28.0-37.0); MCV 88.6 fL (80.0-100.0); MONOCYTES 4.6 %; MPV 8.5 fl. (7.2-11.1); NUCLEATED RBCS 0 /100WBC; PLATELET COUNT* 105 thou/uL (150-400); POLYS 81.1 %; RBC 3.25 mil/uL (4.20-5.00); RDW-CV 14.2 % (10.5-14.5); WBC 8.9 thou/uL (4.0-11.0)
[2019-05-20 07:07] LABS: ALBUMIN 1.7 g/dL (3.4-5.0); CALCIUM 7.3 mg/dL (8.5-10.1); CREATININE 1.3 mg/dL (0.6-1.3); POTASSIUM 3.1 mmol/L (3.5-5.1); TOTAL BILIRUBIN 0.5 mg/dL (<0.1-1.0); TOTAL PROTEIN 4.8 g/dL (6.4-8.2)
[2019-05-21] VITALS (7 sets, daily range): BP systolic 128–178; BP diastolic 49–77
[2019-05-21 05:01] LABS: HEMATOCRIT 28.6 % (37.0-47.0); HEMOGLOBIN 9.9 gm/dL (12.0-15.0); MCH 30.5 pg (26.0-34.0); MCHC 34.5 g/dL (28.0-37.0); MCV 88.3 fL (80.0-100.0); MPV 8.2 fl. (7.2-11.1); RBC 3.24 mil/uL (4.20-5.00); RDW-CV 13.8 % (10.5-14.5); WBC 7.2 thou/uL (4.0-11.0)
[2019-05-21 05:15] LABS: ALBUMIN 1.6 g/dL (3.4-5.0); CALCIUM 7.3 mg/dL (8.5-10.1); CREATININE 1.2 mg/dL (0.6-1.3); MAGNESIUM 1.5 mg/dL (1.8-2.4); PHOSPHORUS* 1.9 mg/dL (2.5-4.9); POTASSIUM 4.2 mmol/L (3.5-5.1)
[2019-05-22 04:52] VITALS: BP 139/65
[2019-05-22 05:28] LABS: ABSOLUTE EOSINOPHILS 0.2 thou/uL (0.0-0.7); ABSOLUTE LYMPHOCYTES 1.1 thou/uL (0.8-5.3); ABSOLUTE MONOCYTES 0.5 thou/uL (0.0-1.2); ABSOLUTE NEUTROPHILS 4.8 thou/uL (1.6-8.1); BASOPHILS 0.2 %; EOSINOPHILS 2.5 %; HEMATOCRIT 28.1 % (37.0-47.0); HEMOGLOBIN 9.8 gm/dL (12.0-15.0); LYMPHOCYTES 17.4 %; MCH 30.7 pg (26.0-34.0); MCHC 34.9 g/dL (28.0-37.0); MCV 87.7 fL (80.0-100.0); MONOCYTES 7.5 %; MPV 8.2 fl. (7.2-11.1); NUCLEATED RBCS 0 /100WBC; PLATELET COUNT* 132 thou/uL (150-400); POLYS 72.4 %; RDW-CV 13.4 % (10.5-14.5); WBC 6.6 thou/uL (4.0-11.0)
[2019-05-22 05:57] LABS: ALBUMIN 1.6 g/dL (3.4-5.0); CALCIUM 6.9 mg/dL (8.5-10.1); CREATININE 1.1 mg/dL (0.6-1.3); POTASSIUM 3.7 mmol/L (3.5-5.1); TOTAL BILIRUBIN 0.5 mg/dL (<0.1-1.0); TOTAL PROTEIN 4.7 g/dL (6.4-8.2)
[2019-05-22 12:00] VITALS: BP 111/75
[2019-05-22 16:00] VITALS: BP 162/64
[2019-05-22 23:59] VITALS: BP 169/70
[2019-05-23 04:00] VITALS: BP 137/56
[2019-05-23 05:08] LABS: ABSOLUTE EOSINOPHILS 0.2 thou/uL (0.0-0.7); ABSOLUTE LYMPHOCYTES 1.3 thou/uL (0.8-5.3); ABSOLUTE MONOCYTES 0.7 thou/uL (0.0-1.2); ABSOLUTE NEUTROPHILS 5.9 thou/uL (1.6-8.1); BASOPHILS 0.5 %; HEMATOCRIT 28.2 % (37.0-47.0); LYMPHOCYTES 16.2 %; MCH 30.9 pg (26.0-34.0); MCHC 35.6 g/dL (28.0-37.0); MCV 86.8 fL (80.0-100.0); MONOCYTES 8.2 %; MPV 7.5 fl. (7.2-11.1); NUCLEATED RBCS 0 /100WBC; PLATELET COUNT* 152 thou/uL (150-400); POLYS 72.1 %; RBC 3.25 mil/uL (4.20-5.00); RDW-CV 13.6 % (10.5-14.5); WBC 8.2 thou/uL (4.0-11.0)
[2019-05-23 05:23] LABS: ALBUMIN 1.7 g/dL (3.4-5.0); CALCIUM 7.1 mg/dL (8.5-10.1); CREATININE 1.1 mg/dL (0.6-1.3); POTASSIUM 3.5 mmol/L (3.5-5.1); TOTAL BILIRUBIN 0.5 mg/dL (<0.1-1.0); TOTAL PROTEIN 4.7 g/dL (6.4-8.2)
[2019-05-23 08:00] VITALS: BP 151/57
[2019-05-23 12:00] VITALS: BP 113/42
[2019-05-23 12:33] LABS: BE 1.4 mmol/L (-2 to +3); PCO2 34.8 mmHg (35.0-45.0); PO2 82.3 mmHg (75.0-100.0); pH 7.473 (7.340-7.450)
[2019-05-23 16:00] VITALS: BP 148/70
[2019-05-24] VITALS: BP 107/47
[2019-05-24 03:57] VITALS: BP 111/51
[2019-05-24 07:46] VITALS: BP 121/42
[2019-05-24 11:00] LABS: PCO2 39.5 mmHg (35.0-45.0); PO2 108.7 mmHg (75.0-100.0); pH 7.445 (7.340-7.450)
[2019-05-24 11:01] LABS: BE 2.3 mmol/L (-2 to +3)
[2019-05-24 12:00] VITALS: BP 114/67
[2019-05-24 12:26] LABS: ABSOLUTE EOSINOPHILS 0.1 thou/uL (0.0-0.7); ABSOLUTE LYMPHOCYTES 1.1 thou/uL (0.8-5.3); ABSOLUTE MONOCYTES 0.6 thou/uL (0.0-1.2); BASOPHILS 0.5 %; EOSINOPHILS 1.6 %; HEMATOCRIT 26.4 % (37.0-47.0); HEMOGLOBIN 9.1 gm/dL (12.0-15.0); LYMPHOCYTES 12.7 %; MCH 30.4 pg (26.0-34.0); MCHC 34.6 g/dL (28.0-37.0); MCV 87.9 fL (80.0-100.0); MONOCYTES 7.2 %; MPV 7.3 fl. (7.2-11.1); NUCLEATED RBCS 0 /100WBC; PLATELET COUNT* 170 thou/uL (150-400); RBC 3.01 mil/uL (4.20-5.00); RDW-CV 13.5 % (10.5-14.5); WBC 8.9 thou/uL (4.0-11.0)
[2019-05-24 12:38] LABS: CALCIUM 7.5 mg/dL (8.5-10.1); CREATININE 1.1 mg/dL (0.6-1.3); MAGNESIUM 1.5 mg/dL (1.8-2.4); PHOSPHORUS* 2.6 mg/dL (2.5-4.9); POTASSIUM 3.8 mmol/L (3.5-5.1)
--- NOTE | 2019-05-24 15:30 | EKG ---
[place] [address] ELECTROCARDIOGRAM REPORT Name: LOVELYBENJY Room: [address] ADM IN .R.#: [id number] Admission: 05/17/19 Attend Phys: Troy sommers Sa Discharge: Date of : 31 Date of Service: 05/24/19 1450 Report #: [id number] THIS REPORT FOR: //name// [facility] Test Date: 2019-05-24 Test Time: 14:50:39 Pat Name: BENJY MURRY Department: Room: [address] Gender: F Associate Director Finance: : 1935 Requested By: Casimiro Iglesias Order Number: [id number] Logan MD: David Govea Measurements Intervals [place] Rate: 96 P: 66 ND: 151 QRS: 2 QRSD: 85 T: 0 QT: 399 QTc: 505 Interpretive Statements ectopic atrial rhythm Compared to ECG 05/17/2019 12:40:55 Atrial ectopic rhythm noted Electronically Signed On 05-24-2019 15:28:41 CDT by David Govea [email or web address] <ELECTRONICALLY SIGNED> By: David Govea MD, [facility] 05/24/19 1528 1450 1450 David Govea MD, [facility] /EPI
[2019-05-24 16:15] VITALS: BP 135/55
[2019-05-24 20:00] VITALS: BP 121/54
[2019-05-25] VITALS (8 sets, daily range): BP systolic 118–146; BP diastolic 41–92
[2019-05-25 04:35] LABS: ABSOLUTE BASOPHILS 0.1 thou/uL (0.0-0.2); ABSOLUTE EOSINOPHILS 0.2 thou/uL (0.0-0.7); ABSOLUTE LYMPHOCYTES 1.2 thou/uL (0.8-5.3); ABSOLUTE MONOCYTES 0.9 thou/uL (0.0-1.2); ABSOLUTE NEUTROPHILS 7.3 thou/uL (1.6-8.1); BASOPHILS 0.5 %; HEMATOCRIT 25.5 % (37.0-47.0); HEMOGLOBIN 8.9 gm/dL (12.0-15.0); LYMPHOCYTES 12.6 %; MCH 30.8 pg (26.0-34.0); MPV 7.6 fl. (7.2-11.1); NUCLEATED RBCS 0 /100WBC; PLATELET COUNT* 183 thou/uL (150-400); POLYS 75.9 %; RDW-CV 13.9 % (10.5-14.5); WBC 9.7 thou/uL (4.0-11.0)
[2019-05-25 05:06] LABS: ALBUMIN 1.6 g/dL (3.4-5.0); CALCIUM 7.6 mg/dL (8.5-10.1); POTASSIUM 3.6 mmol/L (3.5-5.1); TOTAL BILIRUBIN 0.5 mg/dL (<0.1-1.0); TOTAL PROTEIN 4.8 g/dL (6.4-8.2)
--- NOTE | 2019-05-25 12:18 | EKG ---
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: : 1935 Requested By: Jf Moreno Order Number: [id number] MD: Ray Cerda Measurements Intervals [place] Rate: 69 P: 74 [place]: 135 QRS: 55 QRSD: 85 T: 30 QT: 435 QTc: 466 Interpretive Statements Sinus rhythm Borderline low voltage, extremity leads Compared to ECG 05/01/2019 08:03:24 Atrial premature complex(es) no longer present Poor R-wave progression no longer present Electronically Signed On 05-17-2019 16:15:59 CDT by Ray Cerda [email or web address] <ELECTRONICALLY SIGNED> By: Ray Cerda MD, FAC 05/17/19 1615 1240 1240 Ray Cerda MD, FAC /EPI
[2019-05-25] MEDS ORDERED: LEVAQUIN 500 M500 M3 PO (13:29)
== END 2019-05-25 17:05 | DRG 871 ==
LOC: M.ERS 11:00 → M.TBA-ER 11:50 → M.ICU 11:50 → M.2W 05-20 10:21
PROVIDERS: Emergency Medicine Emergency Medical Services; Internal Medicine; Internal Medicine Pulmonary Disease; ADMIT Family Medicine
PROC: 0BH17EZ Insertion of Endotracheal Airway into Trachea, Via Natural or Artificial Opening (ICD-10-PCS; principal; 2019-05-17)
PROC: 5A1945Z Respiratory Ventilation, 24-96 Consecutive Hours (ICD-10-PCS; principal; 2019-05-17)
DX: A41.9 Sepsis, unspecified organism (principal); N17.0 Acute kidney failure with tubular necrosis; J69.0 Pneumonitis due to inhalation of food and vomit; G93.41 Metabolic encephalopathy; J96.01 Acute respiratory failure with hypoxia; E43 Unspecified severe protein-calorie malnutrition; I21.A1 Myocardial infarction type 2; Z68.1 Body mass index [BMI] 19.9 or less, adult; R65.20 Severe sepsis without septic shock; G30.9 Alzheimer's disease, unspecified; F02.80 Dementia in other diseases classified elsewhere, unspecified severity, without behavioral disturbance, psychotic disturbance, mood disturbance, and anxiety; N18.3 Chronic kidney disease, stage 3 (moderate); M19.90 Unspecified osteoarthritis, unspecified site; E87.6 Hypokalemia; E86.0 Dehydration; I95.9 Hypotension, unspecified; I12.9 Hypertensive chronic kidney disease with stage 1 through stage 4 chronic kidney disease, or unspecified chronic kidney disease; Z20.828 Contact with and (suspected) exposure to other viral communicable diseases; Z88.6 Allergy status to analgesic agent; Z88.8 Allergy status to other drugs, medicaments and biological substances; Z95.0 Presence of cardiac pacemaker; Z91.81 History of falling; Z79.899 Other long term (current) drug therapy; Z03.818 Encounter for observation for suspected exposure to other biological agents ruled out